=== PATIENT | female | born 1945 | race Caucasian/White ===

== ENCOUNTER 2016-10-02 04:05 | Emergency (ER) | payer OTHER, BC ==
[~2016-10-02 04:05] MED LIST: BACO TOP; BUS10 PO; BUS5 PO; CAR30 PO; CAR60 PO; COL100 PO; COR200 PO; COU1 PO; COU2 PO; COU5 PO; COUMADIN1 MG PO; COUMADIN2 MG PO; COUMADIN2.5 MG PO; COUMADIN5 MG PO; COUMADIN6 MG PO; DIG125 PO; DILTIAZEM HCL90 MG PO; DILTIAZEM30 M1 PO; FER300 PO; GLU500 PO; HIBICLENS118 ML TOP; LAC PO; LANOXIN0.125 MG PO; LASIX40 MG PO; MAC100 PO; MACROBID100 MG PO; METOPROLOL SUCC25 M1 PO; METOPROLOL TART25 M1 PO; METOPROLOL TART50 MG PO; MUCINEX600 MG PO; NORCO1 TA2 PO; PEPCID20 MG PO; PREMPRO1 TA1 PO; THERA TABS1 TAB PO; TOP50 PO; TRE400 PO; TRIMETHOBENZAM300 MG PO; WARFARIN SODIUM5 MG PO; XARELTO15 M1 PO
[2016-10-02 08:29] VITALS: BP 125/85
== END 2016-10-02 08:29 | disposition home or self-care (01) ==
LOC: ED 04:05
DX: B30.9 Viral conjunctivitis, unspecified (principal); L03.116 Cellulitis of left lower limb; L03.115 Cellulitis of right lower limb; I50.9 Heart failure, unspecified
CPT/HCPCS: J0696; J1940

== ENCOUNTER 2016-10-30 13:58 | Inpatient (IN) | payer OTHER, BC ==
[~2016-10-30] VITALS: Ht 157.5 cm; Wt 70.9 kg
[2016-10-30 15:07] LABS: PLATELET COUNT 526 x10^3mcL (130-400)
[2016-10-30 15:10] LABS: CALCIUM 8.4 mg/dL (8.5-10.1); CARBON DIOXIDE 25.2 mmol/L (21-32); CHLORIDE SERUM 104 mmol/L (98-107); CREATININE SERUM 0.9 mg/dL (0.6-1.0); GLUCOSE SERUM 91 mg/dL (74-106); POTASSIUM SERUM 3.4 mmol/L (3.5-5.1); SODIUM SERUM 141 mmol/L (136-145)
[2016-10-30 15:14] LABS: ALKALINE PHOSPHATASE 162 U/L (46-116); ALT/SGPT 19 U/L (14-59); AST/SGOT 22 U/L (15-37); TOTAL PROTEIN, SERUM 7.6 g/dL (6.4-8.2)
[2016-10-30 15:17] LABS: ALBUMIN 3.1 g/dL (3.4-5.0)
[2016-10-30 15:37] LABS: BAND NEUTROPHIL 1 % (0-10); MONOCYTE 5 % (0-7); SEGMENTED NEUTROPHILS 81 % (37-75)
[2016-10-30 15:39] LABS: rbc morphology (normal/abnorm) ABNORMAL (NORMAL)
[2016-10-30 15:41] LABS: PLATELET MORPHOLOGY PLATELETS INCREASED
[2016-10-30 16:41] VITALS: BP 165/87
[2016-10-30 16:43] VITALS: Ht 157.5 cm; Wt 70.9 kg
[2016-10-30 19:47] VITALS: BP 165/87
[2016-10-30 20:39] LABS: MAGNESIUM 2.1 mg/dL (1.8-2.4); PHOSPHOROUS 3.8 mg/dL (2.5-4.9)
[2016-10-30 20:47] LABS: FREE T4 1.48 ng/dL (0.76-1.46); FREE THYROXINE INDEX 3.8 ug/dL (1.4-4.5); T4(THYROXINE) 10.4 ug/dL (4.7-13.3)
[2016-10-30 20:48] LABS: CHOLESTEROL/HDL RATIO 1.9
[2016-10-30 22:20] LABS: T3 TOTAL 0.68 ng/mL
[2016-10-30 22:37] VITALS: BP 142/76
[2016-10-31 05:02] VITALS: BP 129/71
[2016-10-31 08:00] LABS: PLATELET COUNT 512 x10^3mcL (130-400); RED CELL DISTRIBUTION WIDTH 26.4 % (11.5-14.5)
[2016-10-31 08:45] LABS: CALCIUM 8.3 mg/dL (8.5-10.1); CHLORIDE SERUM 106 mmol/L (98-107); GLUCOSE SERUM 101 mg/dL (74-106); MAGNESIUM 2.2 mg/dL (1.8-2.4); PHOSPHOROUS 4.2 mg/dL (2.5-4.9); POTASSIUM SERUM 4.2 mmol/L (3.5-5.1); SODIUM SERUM 142 mmol/L (136-145)
[2016-10-31 10:19] VITALS: BP 143/71
[2016-10-31 11:41] LABS: BAND NEUTROPHIL 0 % (0-10); BASOPHIL 0 % (0-2); MONOCYTE 4 % (0-7); SEGMENTED NEUTROPHILS 94 % (37-75)
[2016-10-31 11:44] LABS: rbc morphology (normal/abnorm) ABNORMAL (NORMAL)
[2016-10-31 11:45] LABS: PLATELET MORPHOLOGY PLATELETS INCREASED
[2016-10-31 13:54] VITALS: BP 101/67
[2016-10-31 14:52] LABS: AMPHETAMINE QUAL UR NONE DETECTED (NEG <=1000)
[2016-10-31 18:16] VITALS: BP 111/62
[2016-10-31 22:12] VITALS: BP 119/62
[2016-11-01 06:11] VITALS: BP 113/70
[2016-11-01 08:30] LABS: PLATELET COUNT 502 x10^3mcL (130-400); RED CELL DISTRIBUTION WIDTH 25.8 % (11.5-14.5)
[2016-11-01 08:40] LABS: CALCIUM 8.3 mg/dL (8.5-10.1); CARBON DIOXIDE 20.3 mmol/L (21-32); CHLORIDE SERUM 109 mmol/L (98-107); CREATININE SERUM 0.8 mg/dL (0.6-1.0); GLUCOSE SERUM 99 mg/dL (74-106); POTASSIUM SERUM 4.2 mmol/L (3.5-5.1); SODIUM SERUM 143 mmol/L (136-145)
[2016-11-01 10:22] VITALS: BP 145/61
[2016-11-01 10:58] LABS: BAND NEUTROPHIL 1 % (0-10); BASOPHIL 0 % (0-2); MONOCYTE 6 % (0-7); SEGMENTED NEUTROPHILS 88 % (37-75)
[2016-11-01 11:00] LABS: PLATELET MORPHOLOGY PLATELETS INCREASED; ovalocyte/elliptocyte 1+; rbc morphology (normal/abnorm) ABNORMAL (NORMAL)
[2016-11-01 14:00] VITALS: BP 106/60
[2016-11-01 18:00] VITALS: BP 117/62
[2016-11-01 21:47] VITALS: BP 132/70
[2016-11-02 05:36] VITALS: BP 110/55
[2016-11-02 07:08] LABS: BASOPHIL % 0 % (0-2); PLATELET COUNT 520 x10^3mcL (130-400); RED CELL DISTRIBUTION WIDTH 25.8 % (11.5-14.5); rbc morphology (normal/abnorm) ABNORMAL (NORMAL)
[2016-11-02 07:23] LABS: CALCIUM 8.4 mg/dL (8.5-10.1); CARBON DIOXIDE 26.1 mmol/L (21-32); CHLORIDE SERUM 107 mmol/L (98-107); CREATININE SERUM 0.9 mg/dL (0.6-1.0); GLUCOSE SERUM 95 mg/dL (74-106); POTASSIUM SERUM 3.6 mmol/L (3.5-5.1); SODIUM SERUM 143 mmol/L (136-145)
[2016-11-02 08:36] LABS: ovalocyte/elliptocyte 1+
[2016-11-02 10:25] VITALS: BP 112/55
[2016-11-02 14:00] VITALS: BP 125/63
[2016-11-02 17:53] VITALS: BP 133/97
[2016-11-02 22:33] VITALS: BP 141/56
[2016-11-03 06:51] VITALS: BP 124/57
[2016-11-03 06:57] LABS: BASOPHIL % 0.2 % (0-2)
[2016-11-03 07:08] LABS: CALCIUM 8.5 mg/dL (8.5-10.1); CARBON DIOXIDE 26.4 mmol/L (21-32); CHLORIDE SERUM 106 mmol/L (98-107); CREATININE SERUM 0.9 mg/dL (0.6-1.0); GLUCOSE SERUM 99 mg/dL (74-106); POTASSIUM SERUM 3.7 mmol/L (3.5-5.1); SODIUM SERUM 141 mmol/L (136-145)
[2016-11-03 07:39] LABS: RED CELL DISTRIBUTION WIDTH 27.1 % (11.5-14.5)
[2016-11-03 07:40] LABS: PLATELET COUNT 519 x10^3mcL (130-400)
[2016-11-03 08:45] LABS: ovalocyte/elliptocyte 1+; rbc morphology (normal/abnorm) ABNORMAL (NORMAL); schistocyte (helmet cell) 1+
[2016-11-03 09:47] VITALS: BP 129/65
[2016-11-03] MEDS ORDERED: IPRATROPIUM BROM3 M2 HHN (10:14)
[2016-11-03] MEDS ORDERED: ZOSYN2.25 GM/50 IV (10:16)
[2016-11-03] MEDS ORDERED: MUCINEX600 MG PO (10:17)
[2016-11-03] MEDS ORDERED: PULMICORT0.25 MG/2 IH (10:17)
[2016-11-03] MEDS ORDERED: HUMULIN R100 U/1 M1 SC (10:18)
[2016-11-03 13:42] VITALS: BP 132/74
[2016-11-03] MEDS ORDERED: L20I IV (15:30)
[2016-11-03 16:22] VITALS: BP 132/74
== END 2016-11-03 19:40 | DRG 291 ==
LOC: ED 13:58 → DU 15:26
PROVIDERS: Emergency Medicine; Family Medicine; ADMIT Family Medicine
DX: I50.43 Acute on chronic combined systolic (congestive) and diastolic (congestive) heart failure (principal); R53.2 Functional quadriplegia; N17.0 Acute kidney failure with tubular necrosis; E44.0 Moderate protein-calorie malnutrition; J90 Pleural effusion, not elsewhere classified; I48.2 Chronic atrial fibrillation; I27.2 Other secondary pulmonary hypertension; I11.0 Hypertensive heart disease with heart failure; E80.6 Other disorders of bilirubin metabolism; R09.02 Hypoxemia; D50.9 Iron deficiency anemia, unspecified; Z68.28 Body mass index [BMI] 28.0-28.9, adult; Z79.01 Long term (current) use of anticoagulants
CPT/HCPCS: 80307; 83880; 84439; 97110-GP; 97116-GP; 97530-GP; J0696; J1940; J1956; J2060; J2405; J2543; J3475; J3490; J7030; J7050; J7620; J7633; Q0092

== ENCOUNTER 2016-12-05 16:20 | Emergency (ER) | payer OTHER, BC ==
[~2016-12-05] VITALS: Ht 165.1 cm; Wt 59.0 kg
[~2016-12-05 16:20] MED LIST changes: +HUMULIN R100 U/1 M1 SC; +IPRATROPIUM BROM3 M2 HHN; +L20I IV; +PULMICORT0.25 MG/2 IH; +ZOSYN2.25 GM/50 IV
[2016-12-05 20:46] VITALS: BP 117/80
== END 2016-12-05 20:46 | disposition home or self-care (01) ==
LOC: ED 16:20
DX: M54.5 Low back pain (principal); I48.2 Chronic atrial fibrillation; I50.9 Heart failure, unspecified; F20.9 Schizophrenia, unspecified; F03.90 Unspecified dementia, unspecified severity, without behavioral disturbance, psychotic disturbance, mood disturbance, and anxiety; Z79.4 Long term (current) use of insulin; Z79.891 Long term (current) use of opiate analgesic; Z79.899 Other long term (current) drug therapy

== ENCOUNTER 2016-12-11 04:43 | Emergency (ER) | payer OTHER ==
[2016-12-11 06:14] VITALS: BP 134/88
== END 2016-12-11 06:14 | disposition home or self-care (01) ==
LOC: ED 04:43
DX: M54.5 Low back pain (principal); I48.91 Unspecified atrial fibrillation; Z86.59 Personal history of other mental and behavioral disorders
CPT/HCPCS: J1885

== ENCOUNTER 2017-01-11 05:24 | Emergency (ER) | payer OTHER, BC ==
[~2017-01-11] VITALS: Ht 165.1 cm; Wt 60.3 kg
[2017-01-11 06:23] LABS: BASOPHIL % 0.3 % (0-2)
[2017-01-11 06:30] LABS: PLATELET COUNT 628 x10^3mcL (130-400); RED CELL DISTRIBUTION WIDTH 28.2 % (11.5-14.5)
[2017-01-11 06:34] LABS: rbc morphology (normal/abnorm) ABNORMAL (NORMAL)
[2017-01-11 08:03] VITALS: BP 140/94
== END 2017-01-11 07:46 | disposition left against medical advice (07) ==
LOC: ED 05:24
PROVIDERS: Emergency Medicine
DX: R04.0 Epistaxis (principal); I48.91 Unspecified atrial fibrillation; I50.9 Heart failure, unspecified; Z79.01 Long term (current) use of anticoagulants; Z79.899 Other long term (current) drug therapy
CPT/HCPCS: 36415

== ENCOUNTER 2017-01-19 22:26 | Emergency (ER) | payer OTHER, BC ==
[2017-01-20 03:27] VITALS: BP 153/81
== END 2017-01-20 03:27 | disposition left against medical advice (07) ==
LOC: ED 22:26
DX: Z00.8 Encounter for other general examination (principal); M79.89 Other specified soft tissue disorders; I11.0 Hypertensive heart disease with heart failure; I50.9 Heart failure, unspecified; I48.91 Unspecified atrial fibrillation
CPT/HCPCS: Q0092

== ENCOUNTER 2017-05-20 10:24 | Inpatient (IN) | payer OTHER, BC ==
[~2017-05-20] VITALS: Ht 157.5 cm; Wt 72.3 kg
[2017-05-20 11:41] LABS: BASOPHIL % 0.6 % (0-2); PLATELET COUNT 374 x10^3mcL (130-400); RED CELL DISTRIBUTION WIDTH 14.5 % (11.5-14.5)
[2017-05-20] MEDS ORDERED: POTASSIUM CHLO10 MEQ (11:48)
[2017-05-20] MEDS ORDERED: DIGOXIN0.125 M1 (11:48)
[2017-05-20 12:05] LABS: CK-MB 1.3 ng/mL (0-3.6)
[2017-05-20 12:23] LABS: CALCIUM 8.8 mg/dL (8.5-10.1); CARBON DIOXIDE 23.9 mmol/L (21-32); CHLORIDE SERUM 106 mmol/L (98-107); CREATININE SERUM 0.8 mg/dL (0.6-1.0); GLUCOSE SERUM 125 mg/dL (74-106); SODIUM SERUM 139 mmol/L (136-145)
[2017-05-20 12:36] LABS: ALBUMIN 3.2 g/dL (3.4-5.0); ALKALINE PHOSPHATASE 141 U/L (46-116); ALT/SGPT 16 U/L (14-59); AST/SGOT 19 U/L (15-37); BILIRUBIN TOTAL 0.7 mg/dL (0.20-1.00); T4(THYROXINE) 9.3 ug/dL (4.7-13.3); TOTAL PROTEIN, SERUM 7.6 g/dL (6.4-8.2)
[2017-05-20 12:45] LABS: microscopic required? NO
[2017-05-20 12:49] LABS: MAGNESIUM 1.9 mg/dL (1.8-2.4); PHOSPHOROUS 3.1 mg/dL (2.5-4.9)
[2017-05-20 12:53] LABS: CHOLESTEROL/HDL RATIO 2.7
[2017-05-20 14:23] LABS: urine erythrocyte NEGATIVE (NEGATIVE)
[2017-05-20 14:31] LABS: AMPHETAMINE QUAL UR NONE DETECTED (NEG <=1000)
[2017-05-20 15:25] VITALS: BP 107/43
[2017-05-20 17:06] VITALS: BP 130/59
[2017-05-20 20:52] VITALS: BP 122/59
[2017-05-21 05:54] VITALS: BP 125/70
[2017-05-21 08:40] LABS: BASOPHIL % 0.6 % (0-2); PLATELET COUNT 331 x10^3mcL (130-400)
[2017-05-21 08:56] LABS: CALCIUM 8.9 mg/dL (8.5-10.1); CARBON DIOXIDE 24.6 mmol/L (21-32); CHLORIDE SERUM 108 mmol/L (98-107); CREATININE SERUM 0.9 mg/dL (0.6-1.0); GLUCOSE SERUM 82 mg/dL (74-106); POTASSIUM SERUM 4.6 mmol/L (3.5-5.1); SODIUM SERUM 142 mmol/L (136-145)
[2017-05-21 09:09] LABS: RED CELL DISTRIBUTION WIDTH 14.7 % (11.5-14.5)
[2017-05-21 10:03] VITALS: BP 135/54
[2017-05-21 13:33] VITALS: BP 153/98
[2017-05-21 16:42] VITALS: BP 130/69
[2017-05-21 21:49] VITALS: BP 165/82
[2017-05-22 06:14] VITALS: BP 155/82
[2017-05-22 07:32] VITALS: BP 159/74
[2017-05-22 09:45] VITALS: BP 148/75
[2017-05-22] MEDS ORDERED: CILOS OU (11:48)
[2017-05-22 12:14] VITALS: BP 148/75
== END 2017-05-22 15:13 | disposition home or self-care (01) | DRG 308 ==
LOC: ED 10:24 → DU 11:43
PROVIDERS: Emergency Medicine; ADMIT Family Medicine Sports Medicine
DX: I48.2 Chronic atrial fibrillation (principal); I50.43 Acute on chronic combined systolic (congestive) and diastolic (congestive) heart failure; E44.0 Moderate protein-calorie malnutrition; H10.33 Unspecified acute conjunctivitis, bilateral; H10.403 Unspecified chronic conjunctivitis, bilateral; I27.20 Pulmonary hypertension, unspecified; I10 Essential (primary) hypertension; Z79.01 Long term (current) use of anticoagulants; Z95.0 Presence of cardiac pacemaker; Z68.29 Body mass index [BMI] 29.0-29.9, adult
CPT/HCPCS: 83880; J3490; J7030; J7050; Q0092

== ENCOUNTER 2017-07-07 05:02 | Inpatient (IN) | payer OTHER, BC ==
[~2017-07-07] VITALS: Ht 165.1 cm; Wt 79.9 kg
[~2017-07-07 05:02] MED LIST changes: +CILOS OU; +DIGOXIN0.125 M1 PO; +METOPROLOL TAR100 MG PO; -METOPROLOL TART50 MG PO; +POTASSIUM CHLO10 MEQ
[2017-07-07 10:39] LABS: BASOPHIL % 0.5 % (0-2); PLATELET COUNT 335 x10^3mcL (130-400)
[2017-07-07 10:41] LABS: RED CELL DISTRIBUTION WIDTH 16.3 % (11.5-14.5)
[2017-07-07 10:50] LABS: CALCIUM 9.1 mg/dL (8.5-10.1); CARBON DIOXIDE 19.2 mmol/L (21-32); CHLORIDE SERUM 107 mmol/L (98-107); CREATININE SERUM 0.8 mg/dL (0.6-1.0); GLUCOSE SERUM 97 mg/dL (74-106); POTASSIUM SERUM 4.8 mmol/L (3.5-5.1); SODIUM SERUM 139 mmol/L (136-145)
[2017-07-07 11:02] LABS: ALKALINE PHOSPHATASE 190 U/L (46-116); ALT/SGPT 15 U/L (14-59); AST/SGOT 31 U/L (15-37); BILIRUBIN TOTAL 1.75 mg/dL (0.20-1.00); C REACTIVE PROTEIN 3.2 mg/dL (<=0.9); TOTAL PROTEIN, SERUM 7.5 g/dL (6.4-8.2)
[2017-07-07 11:03] LABS: ALBUMIN 3.3 g/dL (3.4-5.0)
[2017-07-07 11:04] LABS: T3 TOTAL 0.72 ng/mL
[2017-07-07 11:07] LABS: CK-MB 1.6 ng/mL (0-3.6)
[2017-07-07 11:31] LABS: FREE T4 1.54 ng/dL (0.76-1.46); FREE THYROXINE INDEX 3.8 ug/dL (1.4-4.5); T4(THYROXINE) 9.8 ug/dL (4.7-13.3)
[2017-07-07 11:50] LABS: ERYTHROCYTE SED RATE 20 mm/hr (0-30)
[2017-07-07 12:47] LABS: MAGNESIUM 2.2 mg/dL (1.8-2.4); PHOSPHOROUS 3.5 mg/dL (2.5-4.9)
[2017-07-07 12:49] LABS: CHOLESTEROL/HDL RATIO 1.9
[2017-07-07] MEDS ORDERED: COUMADIN5 MG PO (13:16)
[2017-07-07 13:24] VITALS: BP 133/67
[2017-07-07] MEDS ORDERED: DIGOXIN0.125 M1 PO (14:11)
[2017-07-07 18:00] VITALS: BP 97/60
[2017-07-07 18:02] LABS: microscopic required? NO
[2017-07-07 18:11] LABS: urine erythrocyte NEGATIVE (NEGATIVE)
[2017-07-07 18:21] LABS: AMPHETAMINE QUAL UR NONE DETECTED (NEG <=1000)
[2017-07-07 22:44] VITALS: BP 126/72
[2017-07-08 06:20] VITALS: BP 108/63
[2017-07-08 07:22] LABS: CALCIUM 9.2 mg/dL (8.5-10.1); CARBON DIOXIDE 14.4 mmol/L (21-32); CHLORIDE SERUM 103 mmol/L (98-107); CREATININE SERUM 1.3 mg/dL (0.6-1.0); GLUCOSE SERUM 79 mg/dL (74-106); SODIUM SERUM 138 mmol/L (136-145)
[2017-07-08 07:44] LABS: POTASSIUM SERUM 5.7 mmol/L (3.5-5.1)
[2017-07-08 07:58] LABS: PLATELET COUNT 357 x10^3mcL (130-400)
[2017-07-08 07:59] LABS: RED CELL DISTRIBUTION WIDTH 16.5 % (11.5-14.5)
[2017-07-08 10:25] VITALS: BP 113/73
[2017-07-08 13:32] VITALS: BP 102/66
[2017-07-08 17:59] VITALS: BP 100/61
[2017-07-08 21:15] VITALS: BP 115/66
[2017-07-09 05:37] VITALS: BP 132/66
[2017-07-09 07:40] LABS: BASOPHIL % 0.2 % (0-2); PLATELET COUNT 379 x10^3mcL (130-400); RED CELL DISTRIBUTION WIDTH 16.7 % (11.5-14.5)
[2017-07-09 07:43] LABS: ALKALINE PHOSPHATASE 177 U/L (46-116); ALT/SGPT 44 U/L (14-59); AST/SGOT 84 U/L (15-37); BILIRUBIN TOTAL 2.7 mg/dL (0.20-1.00); CALCIUM 8.2 mg/dL (8.5-10.1); CARBON DIOXIDE 21.5 mmol/L (21-32); CHLORIDE SERUM 103 mmol/L (98-107); CREATININE SERUM 2.1 mg/dL (0.6-1.0); GLUCOSE SERUM 132 mg/dL (74-106); MAGNESIUM 2.1 mg/dL (1.8-2.4); PHOSPHOROUS 5.6 mg/dL (2.5-4.9); POTASSIUM SERUM 4.9 mmol/L (3.5-5.1); SODIUM SERUM 138 mmol/L (136-145); TOTAL PROTEIN, SERUM 6.7 g/dL (6.4-8.2)
[2017-07-09 07:49] LABS: ALBUMIN 3.1 g/dL (3.4-5.0)
[2017-07-09 09:06] VITALS: BP 133/61
[2017-07-09 14:11] VITALS: BP 126/60
[2017-07-09 17:59] VITALS: BP 106/57
[2017-07-09 21:06] VITALS: BP 123/79
[2017-07-10 05:07] VITALS: BP 112/72
[2017-07-10 08:12] LABS: CALCIUM 8.3 mg/dL (8.5-10.1); CARBON DIOXIDE 24.2 mmol/L (21-32); CHLORIDE SERUM 104 mmol/L (98-107); CREATININE SERUM 1.7 mg/dL (0.6-1.0); GLUCOSE SERUM 109 mg/dL (74-106); MAGNESIUM 2.1 mg/dL (1.8-2.4); PHOSPHOROUS 3.2 mg/dL (2.5-4.9); POTASSIUM SERUM 3.9 mmol/L (3.5-5.1); SODIUM SERUM 139 mmol/L (136-145)
[2017-07-10 08:47] LABS: BASOPHIL % 0.4 % (0-2); PLATELET COUNT 357 x10^3mcL (130-400); RED CELL DISTRIBUTION WIDTH 16.7 % (11.5-14.5)
[2017-07-10 09:08] VITALS: BP 121/67
[2017-07-10 13:14] VITALS: BP 135/66
[2017-07-10 18:15] VITALS: BP 112/47
[2017-07-10 20:54] VITALS: BP 108/65
[2017-07-11 05:25] VITALS: BP 129/85
[2017-07-11 07:53] LABS: BILIRUBIN TOTAL 1.54 mg/dL (0.20-1.00); CALCIUM 8.4 mg/dL (8.5-10.1); CARBON DIOXIDE 24.2 mmol/L (21-32); CHLORIDE SERUM 105 mmol/L (98-107); CREATININE SERUM 1.1 mg/dL (0.6-1.0); GLUCOSE SERUM 114 mg/dL (74-106); POTASSIUM SERUM 3.7 mmol/L (3.5-5.1); SODIUM SERUM 139 mmol/L (136-145)
[2017-07-11 07:56] LABS: BASOPHIL % 0.3 % (0-2); PLATELET COUNT 326 x10^3mcL (130-400); RED CELL DISTRIBUTION WIDTH 16.6 % (11.5-14.5)
[2017-07-11 09:57] VITALS: BP 138/67
[2017-07-11 13:10] VITALS: BP 137/45
[2017-07-11 16:13] LABS: BILIRUBIN DIRECT 0.89 mg/dL (0.0-0.2)
[2017-07-11 18:07] VITALS: BP 123/61
[2017-07-11 22:19] VITALS: BP 119/51
[2017-07-12 06:15] VITALS: BP 114/72
[2017-07-12 07:28] LABS: CALCIUM 8.8 mg/dL (8.5-10.1); CARBON DIOXIDE 24.3 mmol/L (21-32); CHLORIDE SERUM 104 mmol/L (98-107); CREATININE SERUM 0.9 mg/dL (0.6-1.0); GLUCOSE SERUM 100 mg/dL (74-106); MAGNESIUM 2.1 mg/dL (1.8-2.4); PHOSPHOROUS 2.7 mg/dL (2.5-4.9); POTASSIUM SERUM 4.1 mmol/L (3.5-5.1); SODIUM SERUM 138 mmol/L (136-145)
[2017-07-12 07:50] LABS: BASOPHIL % 0.9 % (0-2); PLATELET COUNT 306 x10^3mcL (130-400)
[2017-07-12 07:55] LABS: RED CELL DISTRIBUTION WIDTH 15.8 % (11.5-14.5)
[2017-07-12 09:47] VITALS: BP 129/78; BP 133/79
[2017-07-12] MEDS ORDERED: COUMADIN5 MG PO (11:31)
[2017-07-12] MEDS ORDERED: LASIX20 MG PO (11:32)
[2017-07-12 11:57] VITALS: BP 129/78
[2017-07-12 13:06] VITALS: BP 118/69
[2017-07-12] MEDS ORDERED: COUMADIN3 MG PO (15:54)
[2017-07-12 20:42] VITALS: BP 131/78
[2017-07-13 06:42] LABS: BASOPHIL % 0.1 % (0-2); PLATELET COUNT 285 x10^3mcL (130-400)
[2017-07-13 06:46] LABS: RED CELL DISTRIBUTION WIDTH 16.7 % (11.5-14.5)
[2017-07-13 07:11] LABS: CALCIUM 8.5 mg/dL (8.5-10.1); CARBON DIOXIDE 27.8 mmol/L (21-32); CHLORIDE SERUM 102 mmol/L (98-107); CREATININE SERUM 0.9 mg/dL (0.6-1.0); GLUCOSE SERUM 134 mg/dL (74-106); POTASSIUM SERUM 4.2 mmol/L (3.5-5.1); SODIUM SERUM 141 mmol/L (136-145)
[2017-07-13 08:45] VITALS: BP 128/58
[2017-07-13 17:24] VITALS: BP 146/75
[2017-07-13 20:49] VITALS: BP 139/70
[2017-07-14 05:07] VITALS: BP 141/61
[2017-07-14 06:39] LABS: BASOPHIL % 0.2 % (0-2); PLATELET COUNT 289 x10^3mcL (130-400)
[2017-07-14 06:56] LABS: RED CELL DISTRIBUTION WIDTH 16.5 % (11.5-14.5)
[2017-07-14 07:05] LABS: CALCIUM 8.5 mg/dL (8.5-10.1); CARBON DIOXIDE 27.9 mmol/L (21-32); CHLORIDE SERUM 101 mmol/L (98-107); CREATININE SERUM 0.8 mg/dL (0.6-1.0); GLUCOSE SERUM 104 mg/dL (74-106); POTASSIUM SERUM 4.5 mmol/L (3.5-5.1); SODIUM SERUM 137 mmol/L (136-145)
[2017-07-14 12:27] VITALS: BP 133/69
[2017-07-14 12:43] VITALS: Ht 165.1 cm; Wt 79.9 kg
[2017-07-14 16:55] VITALS: BP 134/73
[2017-07-14 21:30] VITALS: BP 126/69
[2017-07-15 05:06] VITALS: BP 129/57
[2017-07-15 07:13] LABS: BASOPHIL % 0.2 % (0-2); PLATELET COUNT 279 x10^3mcL (130-400)
[2017-07-15 07:26] LABS: CALCIUM 8.7 mg/dL (8.5-10.1); CARBON DIOXIDE 28.6 mmol/L (21-32); CHLORIDE SERUM 100 mmol/L (98-107); CREATININE SERUM 0.8 mg/dL (0.6-1.0); GLUCOSE SERUM 92 mg/dL (74-106); POTASSIUM SERUM 4.3 mmol/L (3.5-5.1); SODIUM SERUM 138 mmol/L (136-145)
[2017-07-15 07:31] LABS: RED CELL DISTRIBUTION WIDTH 16.5 % (11.5-14.5)
[2017-07-15 08:27] VITALS: BP 129/65
[2017-07-15 17:38] VITALS: BP 114/57
[2017-07-15 21:45] VITALS: BP 140/71
[2017-07-16 06:00] VITALS: BP 116/56
[2017-07-16 07:22] LABS: BASOPHIL % 0.6 % (0-2); PLATELET COUNT 278 x10^3mcL (130-400)
[2017-07-16 07:33] LABS: RED CELL DISTRIBUTION WIDTH 16.7 % (11.5-14.5)
[2017-07-16 07:43] LABS: CALCIUM 8.8 mg/dL (8.5-10.1); CARBON DIOXIDE 27.4 mmol/L (21-32); CHLORIDE SERUM 102 mmol/L (98-107); CREATININE SERUM 0.8 mg/dL (0.6-1.0); GLUCOSE SERUM 98 mg/dL (74-106); MAGNESIUM 1.9 mg/dL (1.8-2.4); PHOSPHOROUS 3.6 mg/dL (2.5-4.9); POTASSIUM SERUM 4.2 mmol/L (3.5-5.1); SODIUM SERUM 137 mmol/L (136-145)
[2017-07-16 09:07] VITALS: BP 136/79
[2017-07-16 17:24] VITALS: BP 124/63
[2017-07-16 21:30] VITALS: BP 116/52
[2017-07-17 05:57] VITALS: BP 126/68
[2017-07-17 09:50] VITALS: BP 126/68
[2017-07-17] MEDS ORDERED: COUMADIN5 MG PO (09:51)
[2017-07-17 09:57] VITALS: BP 117/69
== END 2017-07-17 14:48 | disposition home or self-care (01) | DRG 304 ==
LOC: ED 05:02 → MU 12:01 → DU 12:01 → MU 07-13 08:48
PROVIDERS: Family Medicine; Specialist; Student in an Organized Health Care Education/Training Program
DX: I11.9 Hypertensive heart disease without heart failure (principal); N17.0 Acute kidney failure with tubular necrosis; I42.0 Dilated cardiomyopathy; E87.3 Alkalosis; I27.20 Pulmonary hypertension, unspecified; R06.4 Hyperventilation; I48.91 Unspecified atrial fibrillation; L29.9 Pruritus, unspecified; F41.1 Generalized anxiety disorder; E11.51 Type 2 diabetes mellitus with diabetic peripheral angiopathy without gangrene; K44.9 Diaphragmatic hernia without obstruction or gangrene; M25.512 Pain in left shoulder; M25.511 Pain in right shoulder; M79.605 Pain in left leg; M79.604 Pain in right leg; Z79.01 Long term (current) use of anticoagulants; Z95.0 Presence of cardiac pacemaker; Z68.25 Body mass index [BMI] 25.0-25.9, adult
CPT/HCPCS: 36600; 83880; 84439; 97110-GP; 97116-GP; J1200; J1940; J1956; J2405; J2543; J3490; J7030; J7620; Q0092

== ENCOUNTER 2017-09-25 08:00 | Inpatient (IN) | payer OTHER, BC ==
[~2017-09-25] VITALS: Ht 165.1 cm; Wt 68.2 kg
[~2017-09-25 08:00] MED LIST changes: +COUMADIN3 MG PO; +LASIX20 MG PO
[2017-09-25 08:03] VITALS: Ht 165.1 cm; Wt 68.2 kg
[2017-09-25 08:54] LABS: PLATELET COUNT 382 x10^3mcL (130-400)
[2017-09-25 09:02] LABS: BASOPHIL % 0 % (0-2); RED CELL DISTRIBUTION WIDTH 18.9 % (11.5-14.5)
[2017-09-25 09:11] LABS: CHLORIDE SERUM 107 mmol/L (98-107); POTASSIUM SERUM 4.2 mmol/L (3.5-5.1); SODIUM SERUM 141 mmol/L (136-145)
[2017-09-25 09:12] LABS: CALCIUM 9.2 mg/dL (8.5-10.1); CARBON DIOXIDE 23.3 mmol/L (21-32); CREATININE SERUM 0.9 mg/dL (0.6-1.0); GLUCOSE SERUM 101 mg/dL (74-106)
[2017-09-25 09:23] LABS: ALBUMIN 3.5 g/dL (3.4-5.0); ALT/SGPT 19 U/L (14-59); AST/SGOT 31 U/L (15-37)
[2017-09-25 09:24] LABS: ALKALINE PHOSPHATASE 181 U/L (46-116)
[2017-09-25] MEDS ORDERED: METOPROLOL TART50 MG PO (10:23)
[2017-09-25 11:16] VITALS: BP 94/67
[2017-09-25 11:58] LABS: MAGNESIUM 2.2 mg/dL (1.8-2.4); PHOSPHOROUS 3.7 mg/dL (2.5-4.9)
[2017-09-25 12:00] LABS: CHOLESTEROL/HDL RATIO 2.4
[2017-09-25 12:31] LABS: FREE T4 1.29 ng/dL (0.76-1.46); FREE THYROXINE INDEX 2.8 ug/dL (1.4-4.5); T4(THYROXINE) 7.5 ug/dL (4.7-13.3)
[2017-09-25 14:19] LABS: T3 TOTAL 0.86 ng/mL
[2017-09-25 17:31] VITALS: BP 115/85
[2017-09-25 21:34] VITALS: BP 130/71
[2017-09-25 23:00] VITALS: BP 115/61
[2017-09-26 06:35] VITALS: BP 110/67
[2017-09-26 08:54] VITALS: BP 118/55
[2017-09-26 09:10] LABS: BASOPHIL % 0.6 % (0-2); PLATELET COUNT 362 x10^3mcL (130-400); RED CELL DISTRIBUTION WIDTH 19.2 % (11.5-14.5)
[2017-09-26 09:30] LABS: CALCIUM 9.6 mg/dL (8.5-10.1); CARBON DIOXIDE 17.5 mmol/L (21-32); CHLORIDE SERUM 103 mmol/L (98-107); CREATININE SERUM 1.5 mg/dL (0.6-1.0); GLUCOSE SERUM 65 mg/dL (74-106); SODIUM SERUM 132 mmol/L (136-145)
[2017-09-26 09:35] LABS: POTASSIUM SERUM 6.4 mmol/L (3.5-5.1)
[2017-09-26 13:11] VITALS: BP 121/64; BP 97/21; BP 98/49
[2017-09-26 14:59] LABS: AMPHETAMINE QUAL UR NONE DETECTED (NEG <=1000)
[2017-09-26 16:44] LABS: UA SPECIFIC GRAVITY <=1.005 (1.005-1.035); microscopic required? YES; urine erythrocyte TRACE (NEGATIVE)
[2017-09-26 17:15] VITALS: BP 98/49
[2017-09-26 19:14] LABS: CALCIUM 9.4 mg/dL (8.5-10.1); CARBON DIOXIDE 12.7 mmol/L (21-32); CHLORIDE SERUM 102 mmol/L (98-107); CREATININE SERUM 2.2 mg/dL (0.6-1.0); GLUCOSE SERUM 169 mg/dL (74-106); SODIUM SERUM 138 mmol/L (136-145)
[2017-09-26 19:17] LABS: POTASSIUM SERUM 6.7 mmol/L (3.5-5.1)
[2017-09-26 21:12] VITALS: BP 127/64
[2017-09-27 05:48] VITALS: BP 115/55
[2017-09-27 06:12] LABS: BASOPHIL % 0.7 % (0-2); PLATELET COUNT 356 x10^3mcL (130-400)
[2017-09-27 06:54] LABS: CALCIUM 8.9 mg/dL (8.5-10.1); CARBON DIOXIDE 17.8 mmol/L (21-32); CHLORIDE SERUM 106 mmol/L (98-107); CREATININE SERUM 2.4 mg/dL (0.6-1.0); GLUCOSE SERUM 146 mg/dL (74-106); MAGNESIUM 2.5 mg/dL (1.8-2.4); PHOSPHOROUS 6.6 mg/dL (2.5-4.9); POTASSIUM SERUM 5.3 mmol/L (3.5-5.1); SODIUM SERUM 139 mmol/L (136-145)
[2017-09-27 09:01] VITALS: BP 125/71
[2017-09-27 13:31] VITALS: BP 120/68
[2017-09-27 16:50] VITALS: BP 108/61
[2017-09-27 21:45] VITALS: BP 104/55
[2017-09-28 06:10] VITALS: BP 117/62
[2017-09-28 06:55] LABS: BASOPHIL % 0.3 % (0-2); PLATELET COUNT 292 x10^3mcL (130-400)
[2017-09-28 06:57] LABS: RED CELL DISTRIBUTION WIDTH 19.8 % (11.5-14.5)
[2017-09-28 07:16] LABS: CALCIUM 8.4 mg/dL (8.5-10.1); CARBON DIOXIDE 22.1 mmol/L (21-32); CHLORIDE SERUM 107 mmol/L (98-107); CREATININE SERUM 1.4 mg/dL (0.6-1.0); GLUCOSE SERUM 106 mg/dL (74-106); MAGNESIUM 2.1 mg/dL (1.8-2.4); POTASSIUM SERUM 4.3 mmol/L (3.5-5.1); SODIUM SERUM 142 mmol/L (136-145)
[2017-09-28 09:14] VITALS: BP 110/66
[2017-09-28 10:00] VITALS: BP 107/63
[2017-09-28 17:19] VITALS: BP 110/67
[2017-09-28 20:49] VITALS: BP 105/51
[2017-09-29 05:32] VITALS: BP 123/60
[2017-09-29 08:47] VITALS: BP 128/62
[2017-09-29 09:55] VITALS: BP 128/62
== END 2017-09-29 11:21 | disposition left against medical advice (07) | DRG 205 ==
LOC: ED 08:00 → EDBEDREQ 10:10 → DU 10:10
PROVIDERS: Emergency Medicine; Family Medicine
DX: M94.0 Chondrocostal junction syndrome [Tietze] (principal); N17.0 Acute kidney failure with tubular necrosis; I42.0 Dilated cardiomyopathy; K21.9 Gastro-esophageal reflux disease without esophagitis; E87.5 Hyperkalemia; F41.1 Generalized anxiety disorder; K44.9 Diaphragmatic hernia without obstruction or gangrene; Z53.21 Procedure and treatment not carried out due to patient leaving prior to being seen by health care provider; I11.0 Hypertensive heart disease with heart failure; I50.9 Heart failure, unspecified; Z60.2 Problems related to living alone; I48.2 Chronic atrial fibrillation; E66.9 Obesity, unspecified; E83.39 Other disorders of phosphorus metabolism; E83.41 Hypermagnesemia; E11.51 Type 2 diabetes mellitus with diabetic peripheral angiopathy without gangrene; F31.9 Bipolar disorder, unspecified; Z79.899 Other long term (current) drug therapy; Z95.0 Presence of cardiac pacemaker; Z79.1 Long term (current) use of non-steroidal anti-inflammatories (NSAID); Z79.2 Long term (current) use of antibiotics; Z68.24 Body mass index [BMI] 24.0-24.9, adult
CPT/HCPCS: 83880; 84439; J0696; J3490; J7030; J7042; Q0092; Q0162

== ENCOUNTER 2017-10-01 12:39 | Inpatient (IN) | payer OTHER, BC ==
[~2017-10-01] VITALS: Ht 165.1 cm; Wt 68.1 kg
[~2017-10-01 12:39] MED LIST changes: +METOPROLOL TART50 MG PO
[2017-10-01 12:45] VITALS: Ht 165.1 cm; Wt 68.1 kg
[2017-10-01 13:28] LABS: BASOPHIL % 0.8 % (0-2); PLATELET COUNT 281 x10^3mcL (130-400)
[2017-10-01 13:32] LABS: RED CELL DISTRIBUTION WIDTH 19.6 % (11.5-14.5)
[2017-10-01 13:39] LABS: CALCIUM 8.6 mg/dL (8.5-10.1); CARBON DIOXIDE 25.6 mmol/L (21-32); CHLORIDE SERUM 107 mmol/L (98-107); CREATININE SERUM 0.7 mg/dL (0.6-1.0); GLUCOSE SERUM 106 mg/dL (74-106); POTASSIUM SERUM 3.8 mmol/L (3.5-5.1); SODIUM SERUM 139 mmol/L (136-145)
[2017-10-01 13:44] LABS: ALBUMIN 3.1 g/dL (3.4-5.0); ALKALINE PHOSPHATASE 193 U/L (46-116); ALT/SGPT 36 U/L (14-59); AST/SGOT 38 U/L (15-37); BILIRUBIN TOTAL 0.7 mg/dL (0.20-1.00); TOTAL PROTEIN, SERUM 7.4 g/dL (6.4-8.2)
[2017-10-01] MEDS ORDERED: SEROQUEL25 MG PO (15:07)
[2017-10-01] MEDS ORDERED: DIGOXIN0.125 M1 PO (15:10)
[2017-10-01] MEDS ORDERED: COUMADIN5 MG PO (15:11)
[2017-10-01] MEDS ORDERED: METOPROLOL SUCC50 M2 PO (15:12)
[2017-10-01 15:36] VITALS: BP 116/65
[2017-10-01 16:21] LABS: T3 TOTAL 0.69 ng/mL
[2017-10-01 16:23] LABS: FREE T4 1.12 ng/dL (0.76-1.46); FREE THYROXINE INDEX 2.2 ug/dL (1.4-4.5); T4(THYROXINE) 5.9 ug/dL (4.7-13.3)
[2017-10-01 16:39] LABS: MAGNESIUM 2.1 mg/dL (1.8-2.4); PHOSPHOROUS 2.2 mg/dL (2.5-4.9)
[2017-10-01 16:50] LABS: CHOLESTEROL/HDL RATIO 2.3
[2017-10-01 18:11] VITALS: BP 113/69
[2017-10-01 21:26] VITALS: BP 112/78
[2017-10-02 04:18] LABS: microscopic required? YES; urine erythrocyte TRACE (NEGATIVE)
[2017-10-02 05:40] VITALS: BP 116/71
[2017-10-02 06:56] LABS: RED BLOOD CELLS 4.29 M/mm3 (4.10-5.10)
[2017-10-02 07:03] LABS: CALCIUM 8.2 mg/dL (8.5-10.1); CARBON DIOXIDE 22.9 mmol/L (21-32); CHLORIDE SERUM 105 mmol/L (98-107); CREATININE SERUM 0.7 mg/dL (0.6-1.0); GLUCOSE SERUM 92 mg/dL (74-106); MAGNESIUM 2.1 mg/dL (1.8-2.4); PHOSPHOROUS 2.7 mg/dL (2.5-4.9); POTASSIUM SERUM 4.2 mmol/L (3.5-5.1); SODIUM SERUM 137 mmol/L (136-145)
[2017-10-02 07:07] LABS: TOTAL IRON BINDING CAPACITY 333 ug/dL (250-450)
[2017-10-02 07:12] LABS: IRON 33 ug/dL (50-170)
[2017-10-02 07:14] LABS: BASOPHIL % 0.2 % (0-2); PLATELET COUNT 290 x10^3mcL (130-400)
[2017-10-02 09:36] VITALS: BP 115/77
[2017-10-02 17:22] VITALS: BP 134/73
[2017-10-02 21:22] VITALS: BP 122/64
[2017-10-03 06:17] LABS: BASOPHIL % 0.6 % (0-2); PLATELET COUNT 204 x10^3mcL (130-400)
[2017-10-03 06:27] LABS: CALCIUM 8.5 mg/dL (8.5-10.1); CARBON DIOXIDE 24.6 mmol/L (21-32); CHLORIDE SERUM 105 mmol/L (98-107); CREATININE SERUM 0.8 mg/dL (0.6-1.0); GLUCOSE SERUM 91 mg/dL (74-106); MAGNESIUM 1.9 mg/dL (1.8-2.4); PHOSPHOROUS 3.3 mg/dL (2.5-4.9); POTASSIUM SERUM 4.2 mmol/L (3.5-5.1); SODIUM SERUM 136 mmol/L (136-145)
[2017-10-03 06:30] LABS: RED CELL DISTRIBUTION WIDTH 19.1 % (11.5-14.5)
[2017-10-03 06:45] VITALS: BP 119/77
[2017-10-03 09:42] VITALS: BP 147/78
[2017-10-03 12:43] VITALS: BP 137/60
[2017-10-03 17:19] VITALS: BP 102/57
[2017-10-03 20:53] VITALS: BP 100/67
[2017-10-04 05:31] VITALS: BP 111/76
[2017-10-04 06:23] LABS: BASOPHIL % 0.7 % (0-2); PLATELET COUNT 277 x10^3mcL (130-400)
[2017-10-04 07:01] LABS: CARBON DIOXIDE 23.3 mmol/L (21-32); CHLORIDE SERUM 105 mmol/L (98-107); CREATININE SERUM 0.9 mg/dL (0.6-1.0); GLUCOSE SERUM 94 mg/dL (74-106); MAGNESIUM 2.1 mg/dL (1.8-2.4); PHOSPHOROUS 3.6 mg/dL (2.5-4.9); POTASSIUM SERUM 3.9 mmol/L (3.5-5.1); SODIUM SERUM 137 mmol/L (136-145)
[2017-10-04 09:34] VITALS: BP 128/56
[2017-10-04 13:06] VITALS: BP 112/60
[2017-10-04 17:25] VITALS: BP 108/67
[2017-10-04 20:45] VITALS: BP 114/62
[2017-10-04 22:25] VITALS: BP 117/62
[2017-10-05] MEDS ORDERED: CAR60 PO (05:34)
[2017-10-05 05:55] VITALS: BP 109/65; BP 98/62
[2017-10-05 06:39] LABS: BASOPHIL % 0.2 % (0-2); PLATELET COUNT 303 x10^3mcL (130-400)
[2017-10-05 06:49] LABS: CALCIUM 8.8 mg/dL (8.5-10.1); CARBON DIOXIDE 21.9 mmol/L (21-32); CHLORIDE SERUM 104 mmol/L (98-107); CREATININE SERUM 0.8 mg/dL (0.6-1.0); GLUCOSE SERUM 80 mg/dL (74-106); MAGNESIUM 2.1 mg/dL (1.8-2.4); PHOSPHOROUS 3.7 mg/dL (2.5-4.9); SODIUM SERUM 137 mmol/L (136-145)
[2017-10-05 06:55] LABS: RED CELL DISTRIBUTION WIDTH 19.8 % (11.5-14.5)
[2017-10-05 09:09] VITALS: BP 111/59
[2017-10-05 10:40] VITALS: BP 111/59
[2017-10-05] MEDS ORDERED: QUETIAPINE FUMA25 M1 PO (12:07)
== END 2017-10-05 16:07 | disposition home or self-care (01) | DRG 308 ==
LOC: ED 12:39 → DU 14:40
PROVIDERS: Emergency Medicine; Family Medicine
DX: I48.2 Chronic atrial fibrillation (principal); I50.43 Acute on chronic combined systolic (congestive) and diastolic (congestive) heart failure; N17.0 Acute kidney failure with tubular necrosis; E44.1 Mild protein-calorie malnutrition; I11.0 Hypertensive heart disease with heart failure; F41.1 Generalized anxiety disorder; E11.51 Type 2 diabetes mellitus with diabetic peripheral angiopathy without gangrene; Z68.25 Body mass index [BMI] 25.0-25.9, adult; Z95.0 Presence of cardiac pacemaker; Z79.01 Long term (current) use of anticoagulants; Z91.128 Patient's intentional underdosing of medication regimen for other reason
CPT/HCPCS: 83880; 84439; G0378; J1200; J1644; J1940; J2060; J2765; J3490; J7030; J7620; Q0092

== ENCOUNTER 2018-05-13 15:03 | Emergency (ER) | payer OTHER, BC ==
[~2018-05-13] VITALS: Ht 152.4 cm; Wt 63.5 kg
[~2018-05-13 15:03] MED LIST changes: +METOPROLOL SUCC50 M2 PO; +QUETIAPINE FUMA25 M1 PO; +SEROQUEL25 MG PO
[2018-05-13 15:09] VITALS: Ht 152.4 cm; Wt 63.5 kg
[2018-05-13 17:02] VITALS: BP 118/68
== END 2018-05-13 17:02 | disposition left against medical advice (07) ==
LOC: ED 15:03
DX: S09.8XXA Other specified injuries of head, initial encounter (principal); I50.9 Heart failure, unspecified; I48.91 Unspecified atrial fibrillation; W01.0XXA Fall on same level from slipping, tripping and stumbling without subsequent striking against object, initial encounter; Y93.89 Activity, other specified; Y92.89 Other specified places as the place of occurrence of the external cause; Y99.8 Other external cause status